=== PATIENT | female | born 1950 | race Caucasian/White ===

== ENCOUNTER → 2018-05-09 18:49 | Outpatient (CLI) | payer MEDICARE, BC, SELFPAY | PROVIDERS: Visit Provider Nurse Practitioner Adult Health | DX: R31.9 Hematuria, unspecified (principal); R82.99 Other abnormal findings in urine | CPT/HCPCS: 87086 ==

== ENCOUNTER → 2018-05-14 12:51 | Outpatient (CLI) | payer MEDICARE, BC, SELFPAY | PROVIDERS: Family Provider Internal Medicine; PCP Internal Medicine; Visit Provider Urology | DX: R10.30 Lower abdominal pain, unspecified (principal); Z87.442 Personal history of urinary calculi | CPT/HCPCS: 74018 ==

== ENCOUNTER 2018-08-19 09:00 | Outpatient (RCR) | payer MEDICARE, BC, SELFPAY ==
--- NOTE | 2018-05-01 17:41 | HP.OTEVAL_ITS ---
Patient's Visit Information CARMENZA ABREU is a 67 year old F, referred to Occupational Therapy by MARY GRACE Syed, with a diagnosis of L wrist pain. Date of Evaluation: 05/01/18 Occupational Therapist: Sally Ahmadi - Subjective Subjective: Arrived and noted L wrist had surgery 50+ years ago per Pt. report due to tendonitis due to de Quervains. She noted that after that at beginning of years had no potassium in body and noted that had a lot of pain and soreness in hand and t/o body. She noted that had increased rx to medications increased all symptoms. She noted that has h/o arthritis and the pain has been increased since September. Wearing brace to session that she was given 50+ years ago per Pt. report. - Pain Left Wrist 4 Pain Intensity Range: 3, 8 - Objective Objective/Observation: Increased weakness noted t/o L UE. No edema, increased sensitivity over radial styloid tendon sheath with palpation. Increased weakness no pain with empty can test. Concerns: Carmenza would benefit from PT to complete general strengthening due to general debility as noted by the Pt. as well as balance as she explained she has had 2x falls to promote increased endurance and ability increased ability to return to PLOF. Please send PT order due to general debility as well as correct OT order for L wrist. - ROM Wrist: flexion R 0-91, L 0-60; ext R 0-44, L 0-44 CMC: opposition R 0-17, L 0-14 MP: flexion R 0-62, L 20-67 IP: flexion R -16-81, L -5-65 MP: WFL PIP: WFL DIP: WFL - Strength Shoulder: R 3+/5, L 3/5 - L side breaks easily with resistance Elbow: R 3+/5, L 3/5 - L side breaks easily with resistance Forearm: R 3+/5, L 3/5 - L side breaks easily with resistance Wrist: R 3+/5, L 3/5 - L side breaks easily with resistance Log Skidder: R 34, L 10 Lateral Pinch: R 10, L 4 Tripod Pinch: R 9, L 4 Tip-to-Tip Pinch: R 6, L 1 - Edema Other: none noted at this time. - DASH-Disabilities of Arm, Shoulder& Hand DASH Sum: 107 - Goals Goal:: Carmenza to increase L box office attendant to that of within 5-10 lbs of R wrist 4/5 trials 80% of the time by d/c. Goal:: Carmenza to have not more than 0-1/10 pain with all fx tasks with no brace on for 4/5 trials 8)5 of the time to promote returning to PLOF including leisure interests by d/c. Goal:: Carmenza to complete proper wrist mechanics and alignment of B wrirst to decrease risk of further or reinjury during all ADL/IADls 4/5 trials 80% of the time by d/c. Goal:: Carmenza to be able to complete all ADL/IADls including fasteners, turning pitt with minimal pain 4/ 5 trials 80% of the time by d/c. Goal:: Carmenza to be mod I to complete HEP to increase strength and endurance needed for ADL/IADLs 4/5 trials 80% of the time by d/c. - Rehabilitation General Assessment: OT evaluation completed on this date. Carmenza exhibits increased signs of arthritic as well as tendon related pain on both radial side and over general wrist. She has severely decreased strength of L dominant UE as well as general debility t/o body from PMHx and IBS and colitis related symptoms , she has increased pain with all fx movements. OT to work on increased radial support through progressive strengthening program, custom splinting, and well as modality use for pain management. Rehabilitation Potential: Good - Anticipated Interventions Anticipated Interventions: A/AAROM/PROM, Strengthening, Scar Care, Triggerpoint Release, Wound Care, Modalities, Orthoses, Joint Protection/Energy Conservation , Ergonomic Education, Dynamic Sitting Balance, Fine Motor Coord/Abel, ADL Training, Caregiver Training, Home Program - Visit Plan Frequency: 2x /Week Duration: 4-6 Weeks General Plan: OT to promote increased ROM in pain free range, UE strength, orthotics as needed to manage pain, pain management, ergonomic training, and general ability to return to PLOF. TEXT: Thank you for the opportunity to evaluate your patient. For Medicare and Medicare HMO plans, please review the plan of care and approve it. It will need to be FAXED BACK to us at [phone] for Medicare purposes. Please let me know if there are questions or concerns regarding this plan of care. Physician Signature: Date:
--- NOTE | 2018-06-05 12:30 | OTREVAL_ITS ---
[place] Medina, ALVINA-C, It has been my pleasure to treat CARMENZA ABREU over the last 10 visits for L wrist pain. Please see the progress note below for an update on the occupational therapy plan of care! Subjective: Arrived and noted slight improvement with touchiness of thumb in brace as well as now out of brace. She feels about 30% back to PLOF. This has been ongoing issue for last 50+ years as well as increased pain over last year. Objective/Function: Re-completed on this date 06/03/18. ROM measurements are as follows: wrist flexion R 0-75, L 0-35; ext R 0-54, L 0-39. Thumb ROM: opposition R 0-24, L 0-16, MP flexion R 0-50, L 0-50; IP flex R -20-77, L -5-57, radial adduction R 0-33, L 0-29 degrees. Completed strength assessment: BUE R 3+/5, L 3/5-easily breaks with resistance, enterprise cloud architect R 38, L 10; lateral pinch 10, L 2; tripod R 10,L 3; pinch R 8, L held due to pain. With tasks stopped at start of pain. Increased pain with all movements through L thumb area. She is able to tolerate touching of fabrics and ultrasound head which is more than previous threshold. She previously needed complete ultrasound in water and not is able to allow to touch skin. Plan Frequency: 2x /Week Duration: 4-6 Weeks Visits in this POC: 8-12 Plan: continue POC. She has recently be dx with C.Diff and has been experiencing general weakness and fatigue t/o body. She often is emotionally liable t/o session due to frustration of pain and circumstances. She has verbalized wanting to continue OT. She has appointment to return to Dr. Simmons on 2017. She has had some decrease in pain but remains very sensitive out of splint. She has only recently been able to tolerate taking splint off while watching TV/sedentary activities and would benefit from further tx of De Quervains. Looked into dexamethasone for iontophoresis treatment but due to additional allergies listed from Dr. Simmons's office that were not indicated from Pt. this will no be completed. De Quervains symptoms have been ongoing for last 50 years and has previously had release. A forearm-based thumb spica splint has been fabricated and she is wearing consistently to manage pain. This splint has including DIP as when starting OT pain and wrist was extremely sensitive to all movements especially touch. She continues to have shooting like pain when out of splint per report. Splint will be cut down when appropriate. OT has started radial stability and thumb stability and strengthening exercises as tolerated as well as B UE strengthening with splint on to promote strengthening. Will continue OT for 2-3x 4 weeks to help continue to decrease pain, gradually decrease splint, promote strength and ROM of thumb and B UE ,and increase participation in ADl/IADls. Goals - Goals Goal:: Carmenza to increase L enterprise cloud architect to that of within 5-10 lbs of R wrist 4/5 trials 80% of the time by d/c. Goal:: Carmenza to have not more than 0-1/10 pain with all fx tasks with no brace on for 4/5 trials 8)5 of the time to promote returning to PLOF including leisure interests by d/c. Goal:: Carmenza to complete proper wrist mechanics and alignment of B wrirst to decrease risk of further or reinjury during all ADL/IADls 4/5 trials 80% of the time by d/c. Goal:: Carmenza to be able to complete all ADL/IADls including fasteners, turning pitt with minimal pain 4/ 5 trials 80% of the time by d/c. Goal:: Carmenza to be mod I to complete HEP to increase strength and endurance needed for ADL/IADLs 4/5 trials 80% of the time by d/c. Anticipated Interventions Anticipated Interventions: A/AAROM/PROM, Strengthening, Scar Care, Triggerpoint Release, Wound Care, Modalities, Orthoses, Joint Protection/Energy Conservation, Ergonomic Education, Dynamic Sitting Balance, Fine Motor Coord/Abel, ADL Training, Caregiver Training, Home Program Please do not hesitate to contact me at [phone] by phone or if you have questions or concerns regarding this new plan of care! Sincerely, Sally Ahmadi
--- NOTE | 2018-06-25 14:54 | HP.OTCOM ---
OT Communication Note 06/25/[address] [place] Medina, [facility] Completed additional measurements as she will be returning to see Dr. Simmons tomorrow. Measurements are as follows: ROM: wrist flexion: R WFL, L 0-36, extension R WFL, L 0-44 Thumb: -radial abduction: R WFL, L 0-29 -opposition R WFL , L 0-27 Strength: corporate security manager R 41, L 25 lbs- pain with movement ; educated to complete only within pain range. lateral R 9, L 6 lbs- pain with movement ; educated to complete only within pain range. tripod R 6, L 2 lbs- pain with movement; educated to complete only within pain range. Sensation: R 2nd 2.83, 3rd 2.83, 4th 2.83, 5th 2.83, thumb 3.22 L 2nd 2.83, 3rd 2.83, 4th 2.83, 5th 2.83, thumb 3.22 Provocative testing. Tinels Sign: positive for R and L hands - difficult to get true understanding of symptoms. rochelle: R negative; L positive. Therapist has concerns for Pt. general well being. She has multiple medical related issues and per Pt. report has been battling kidney stones and c.diff during course of therapy. She has been continually educated if outpatient services if too fatiguing other methods for therapy are available. She has been emotional and emotionally liable t/o all but a very few sessions. She often notes that she feels like she is dying and that she can only cry in front of OT because feels guilty crying in front of her because he is being such a 'big help' at home and is doing most ADLs at this time. She additionally will explain to OT she cannot complete anything but then explain how she has compensated around the task. She will variate between allowing OT to touch painful areas without increased symptoms and then jump at very light touch over painful areas. This makes understanding and determining cause of pain very difficult. Additionally with other underlying medical complications she has a lot she is trying to cope with at this time. Additionally a forearm based thumb spica has been fabricated. This splint was covered with foam to promote comfort and fit. She continues to go back to 50+ y/o black prefabricated splint. She noted custom is not comfortable but fails to allow Ot to adjust and has increased difficulty explaining what is comfortable about splint. OT has recommended a prefabricated forearm based splint to promote comfort and Pt. is looking into it. She has taken about 2 week break due to vacation and has returned to therapy. Increased symptoms since arriving back home. She did lift large pot to save plant from first ocasio and believes to have causing increased symptoms due to lifting task. She will continue POC as established at reassessment 06/06/18. OT to try some desensitization techniques to help decrease pain. If symptoms do not reside in 3-4 visits she will be d/c'd and sent back for further evaluation. Sincerely, Sally Ahmadi, OTR/L Contact Information
--- NOTE | 2018-07-04 11:31 | HP.OTREVAL ---
MARY GRACE Syed, It has been my pleasure to treat CARMENZA ABREU over the last 17 visits for L wrist pain. Please see the progress note below for an update on the occupational therapy plan of care! Subjective: Arrived and noted that Dr. Simmons is referring to sport medicine doctor part of [facility]. She is seeing ALVINA Ortiz. Notes on waitlist. Objective/Function: Completed re-assessment today. She continues to exhibit increased pain with gripping and ROM tasks. Increased sharp pain with emotional response with flexion movements of wrist and thumb. Completed provocative testing with some increased CTS related symptoms with positive tinnels. Did not test Phalen?s as increased pressure would increase de quervains like symptoms. Tinnels sign more present in L hand than R hand. Notes numbness in all finger of L hand with tinnel testing. Past cervical injuries noted. Addition crepitus over joints and tenderness at base of MCP with palpation of A1 edin of R and L RF showing signs of potential of trigger fingers. ROM is as follows: wrist flexion R 0-87, L 0-30 degrees- very stiff on L wrist and increased pain. wrist extension R 0-42, L 0-42. Able to make full composite fist with R fist and L fist. L DIP WFL, L PIP WFL, and L MCP is as follows for digits 2-5th: 2nd 4-84, 3rd 18-86, 4th 10-88, 5th 10-91. thumb: R MP flexion WFL. L MP flexion from flexion position of 34-59 degrees. Thumb IP L WFL; R -19-0-59. Strength measurements is as follows: seamstress fitter R 53, L 8 lbs- increased pain drawing tears to Pt. eyes. lateral pinch R 12, L 4 lbs. tripod R 12, L held. pincer R 5 lbs, L pincer. Sensation: R 2nd 2.83, 3rd 2.83, 4th 2.83, 5th 2.83, thumb 3.22. L 2nd 2.83, 3rd 2.83, 4th 2.83, 5th 2.83, thumb 3.22. Plan Frequency: 2x /Week Duration: 4-6 Weeks Visits in this POC: 8-12 Plan: Will be holding POC until able to see further specialist. Concerns noted with increased stiffness of L wrist flexion but increased flexion increases sharp shooting pain through thumb evoking emotional response. She exhibits positive tinnels on B hands but does have h/o cervical injuries. Pain referral patterns appear to follow radial nerve distribution innervation patterns of L wrist. She does have cortisone and dexamethasone allergies. Dexamethasone is medication used for iontophoresis treatments and has been unable to be additional source of pain management due to allergy. Have been using ultrasound and fluidotherapy to help manage symptoms. OT has attempted making custom splints but increased discomfort noted by patient in both splints and prefers prefabricated splint used when she had tendon sheath release for De Quervains 50+ years ago. Thumb related pain has been issue for 50+ years. Trailed getting additional prefabricated forearm-based thumb spica splint but also did not prefer splint and feels most relief in prefabricated splint previously used. Has been in splint since September. Started OT In April for symptoms starting in September 2017. Appointment schedule for Carmenza to return to OT on Jul 25 for follow up post doctor appointment scheduled on . She is to call if able to get into see specialist prior to Jul 22 and we can adjust schedule. Progress has been limited and pain remains constant. Concerns have been noted to referring doctor of pain and mental health wellbeing due to sustain period of time in which Pt. has been in consistent pain. Further follow up needed with doctor to promote wellbeing and determine cause of pain and symptoms. Will be seen for 1x follow and will determine POC post follow up with doctor. Goals - Goals Goal:: Carmenza to increase L seamstress fitter to that of within 5-10 lbs of R wrist 4/5 trials 80% of the time by d/c. Goal:: Carmenza to have not more than 0-1/10 pain with all fx tasks with no brace on for 4/5 trials 8)5 of the time to promote returning to PLOF including leisure interests by d/c. Goal:: Carmenza to complete proper wrist mechanics and alignment of B wrirst to decrease risk of further or reinjury during all ADL/IADls 4/5 trials 80% of the time by d/c. Goal:: Carmenza to be able to complete all ADL/IADls including fasteners, turning pitt with minimal pain 4/ 5 trials 80% of the time by d/c. Goal:: Carmenza to be mod I to complete HEP to increase strength and endurance needed for ADL/IADLs 4/5 trials 80% of the time by d/c. Anticipated Interventions Anticipated Interventions: A/AAROM/PROM, Strengthening, Scar Care, Triggerpoint Release, Wound Care, Modalities, Orthoses, Joint Protection/Energy Conservation, Ergonomic Education, Dynamic Sitting Balance, Fine Motor Coord/Abel, ADL Training, Caregiver Training, Home Program Please do not hesitate to contact me at [phone] by phone or if you have questions or concerns regarding this new plan of care! Sincerely, Sally Ahmadi
--- NOTE | 2018-07-12 15:23 | OTREVAL_ITS ---
Ch[place] Medina, AUTOMOTIVE ACCESSORY INSTALLER-C, It has been my pleasure to treat CARMENZA ABREU over the last 18 visits for L wrist pain. Please see the progress note below for an update on the occupational therapy plan of care! Subjective: Arrived and noted new script from Dr. Ha. Dr. Ha has provided Lidocaine 5% patch in which Pt. noted she is to wear 12 hours. Arrived with patch on and noted that has had patch on since 7 am. Objective/Function: Tenderness with thenar eminence and CMC joint with light palpation. Previous measurements: L DIP WFL, PIP WFL, and MCP is as follows for digits 2-5th: 2nd 4-84, 3rd 18-86, 4th 10-88, 5th 10-91. thumb: R MP flexion WFL. L MP flexion from flexion position of 34-59 degrees. Thumb IP L WFL; R -1 9-0-59. Strength measurements is as follows: copper plate printer R 53, L 8 lbs- increased pain drawing tears to Pt. eyes. lateral pinch R 12, L 4 lbs. tripod R 12, L held. pincer R 5 lbs, L pincer. Plan Frequency: 1x/Week Duration: 3 Weeks Visits in this POC: 21 Plan: Adjusting POC. 1x3 weeks. She has already been seen for 18 visits with very limited improvements which is why Ot reccommended she return to doctor. She has since seen Dr. Ha and recieved lidocaine patch to manage pain. This appears to be helpping. She has provided new script and would like to continue OT. PRE needed to promote strength of L wrist as she has been splinted for last 6 months prior to coming to therapy. Symptoms have been ongoing for last 50 years and icnreased since 2017. She remians in splint for ADl/IADls. She has HEP set up and is to continue to complete to build strength. Additional exercises to be added within next appointments to promote building strength in wrist and forearm. Goals - Goals Goal:: Carmenza to increase L copper plate printer to that of within 5-10 lbs of R wrist 4/5 trials 80% of the time by d/c. Goal:: Carmenza to have not more than 0-1/10 pain with all fx tasks with no brace on for 4/5 trials 8)5 of the time to promote returning to PLOF including leisure interests by d/c. Goal:: Carmenza to complete proper wrist mechanics and alignment of B wrirst to decrease risk of further or reinjury during all ADL/IADls 4/5 trials 80% of the time by d/c. Goal:: Carmenza to be able to complete all ADL/IADls including fasteners, turning pitt with minimal pain 4/ 5 trials 80% of the time by d/c. Goal:: Carmenza to be mod I to complete HEP to increase strength and endurance needed for ADL/IADLs 4/5 trials 80% of the time by d/c. Anticipated Interventions Anticipated Interventions: A/AAROM/PROM, Strengthening, Scar Care, Triggerpoint Release, Wound Care, Modalities, Orthoses, Joint Protection/Energy Conservation, Ergonomic Education, Dynamic Sitting Balance, Fine Motor Coord/Abel, ADL Training, Caregiver Training, Home Program Please do not hesitate to contact me at [phone] by phone or if you have questions or concerns regarding this new plan of care! Sincerely, Sally Ahmadi
--- NOTE | 2018-08-02 12:10 | OTREVAL_ITS ---
[place] Medina, ALVINA-C, It has been my pleasure to treat CARMENZA ABREU over the last 21 visits for L wrist pain. Please see the progress note below for an update on the occupational therapy plan of care! Subjective: Arrived and noted that has used lidocaine patch one time in past week. Noted feel 65% back to normal. She notes that the achiness has dissipated but still has sharp shooting pain with movements. Completed washing dishes which she noted went well. Noted still needing some help from to doff overhead shirt due to brace. Objective/Function: Completed reassessment on this date of 08/02/18. Measurements are as follows: ROM: wrist flexion: R 0-76, L 0-34. wrist extension: 0-45, L 0-34. supination R 0-78, L 0-80. Thumb: IP: R -15-0-75, L -9-0-68. MP flexion: R 0-53, L 7-68. radial abduction: WFL, L 0-30. Strength: press tender incendiary grenade: R 56, L 9 lbs - increased pain and need to support with other hand. Lateral hand: R 11, L 7 lbs -pain increased to 6/10. Tripod R 11, L 4 lbs -pain increased to 6/10. Pincer R 8 lbs, L 3 lbs - pain increased to 5-6/10. Completed this testing after break prior to continuing. Completed sensory testing and measurements are as follows: R 2nd 2.83, 3rd 2.83 , 4th 2.83, 5th 2.83 , thumb 2.83. L 2nd 2.83, 3rd 2.83 , 4th 2.83, 5th 2.83 , thumb 2.83. She has progressed since initial evaluation with able to complete more pinch related testing without tear provoking pain. Pain still present with gripping related tasks. Plan Frequency: 1x/Week Duration: 3 Weeks Visits in this POC: 22 Plan: Continue POC for 1x more session with follow up in two weeks. She has progressed with increased ability to tolerated movements and she is able to complete functional pinch patterns with increased pain but no tear provoking pain in which movements needed to be avoided. Pain has decreased but still present. She is going without brace t/o home but is still to wear in public as well as at night. She is progressing but is slow to progress. Per request and due to improvement, she will follow up 1x and then will likely be d/c'd at that time if all continues to progress well. Goals - Goals Goal:: Carmenza to increase L press tender incendiary grenade to that of within 5-10 lbs of R wrist 4/5 trials 80% of the time by d/c. Goal:: Carmenza to have not more than 0-1/10 pain with all fx tasks with no brace on for 4/5 trials 80% of the time to promote returning to PLOF including leisure interests by d/c. Goal:: Carmenza to complete proper wrist mechanics and alignment of B wrirst to decrease risk of further or reinjury during all ADL/IADls 4/5 trials 80% of the time by d/c. - MEANT Goal:: Carmenza to be able to complete all ADL/IADls including fasteners, turning pitt with minimal pain 4/ 5 trials 80% of the time by d/c. Goal:: Carmenza to be mod I to complete HEP to increase strength and endurance needed for ADL/IADLs 4/5 trials 80% of the time by d/c. Anticipated Interventions Anticipated Interventions: A/AAROM/PROM, Strengthening, Scar Care, Triggerpoint Release, Wound Care, Modalities, Orthoses, Joint Protection/Energy Conservation, Ergonomic Education, Dynamic Sitting Balance, Fine Motor Coord/Abel, ADL Training, Caregiver Training, Home Program Please do not hesitate to contact me at [phone] by phone or if you have questions or concerns regarding this new plan of care! Sincerely, Sally Ahmadi
--- NOTE | 2018-08-19 18:52 | HP.OTDCSUM_ITS ---
HP - OT D/C Summary It has been my pleasure to treat CARMENZA ABREU under orders from MARY GRACE Syed, for the diagnosis of L wrist pain for a total of 22 visit(s). Please see the following information for a summary of their discharge status. - Overall Improvement % Improvement: 50 - Objective Objective/Function: Arrived and completed reassessment 08/19/18. Completed measurements as follows: ROM: Wrist: - flexion: R 0-85, L 0-35. - extension: R 0-49, L 0-49. - supination: R 0-78, L 0-80. Thumb: - radial adduction: R0- 39, L 0-31. - MP: R 0-65, L 22-60. - IP: R 0-68, L -28-0-73. - opposition: R WFL; L 0-32. Strength: - metal die finisher: R 79, L 8 lbs. - lateral: R 10, L 4 lbs. - tripod: R 12, L 4 lbs. - Tip pinch R 9, L 3 lbs. Perceived touch sensation is WNL upon testing two weeks ago in which it was 2.83 for all fingers. Sharp shooting pain with resistive movements. Tenderness with palpation over CMC and thumb area. Progress has occurred but is minimal at this time. - Goals Patient Goals: Regain Mobility, Regain Strength, Decrease Pain, Return to Work, Decrease Swelling/Stiffness, Improve Fine Motor Skills, Use Hand/Wrist/Arm Normally Again, Sleep Better, Increase ROM, Be More Independent in ADLS, Resume Former Household Responsibilities (Cooking,Cleaning,Yard, etc.), Resume Hobbies Goal:: Carmenza to increase L metal die finisher to that of within 5-10 lbs of R wrist 4/5 trials 80% of the time by d/c. Goal:: Carmenza to have not more than 0-1/10 pain with all fx tasks with no brace on for 4/5 trials 80% of the time to promote returning to PLOF including leisure interests by d/c. Goal:: Carmenza to complete proper wrist mechanics and alignment of B wrirst to decrease risk of further or reinjury during all ADL/IADls 4/5 trials 80% of the time by d/c. - MEANT Goal:: Carmenza to be able to complete all ADL/IADls including fasteners, turning pitt with minimal pain 4/ 5 trials 80% of the time by d/c. Goal:: Carmenza to be mod I to complete HEP to increase strength and endurance needed for ADL/IADLs 4/5 trials 80% of the time by d/c. - Plan Plan: She will be d/c'd today. She was very upset and emotional with discharge as she feels she needs to be 100% prior to discharge. She noted she has been splinting hand for last 5 months as start 2 months prior to starting OT about 3 months ago. OT explained that due to seeing for 22 visits and that although progress has occurred the progress has been minimal and it is no longer appropriate to continue therapy. Carmenza was very upset by this as she feels she needs to be back to 100% by therapy d/c and this issue has been ongoing for the last 12 months with increased symptoms. However, the issue started and has been ongoing for 50+ years and she has already had release completed 50+ years ago. OT further noted that if still having trouble within a couple months it would potentially be beneficial to try therapy again. Additionally, she continues to state that due to wrist pain she is ?not going out with friends? and ?can?t do anything for herself?. She has further confided with OT that family and friends have noted that she is having trouble remembering things and this is very upsetting to her. OT offered to put her in touch with [facility] social sciences instructor to help find different community supports but Pt. noted she does not have money to see counselor and took offense to suggestion. OT tried to further explain that [employer] is to help Carmenza as a patient advocate for herself but still not willing to be provided information. At the initial evaluation Carmenza noted she wanted to see a hand specialist, or CHT. OT educated that CHT is Missy and she could schedule with missy but decided to stick with current OT. This option was available during the course of therapy but denied changing therapists. Over the course of therapy, OT has made 2x forearm-based thumb spica?s, Carmenza did not like and deem uncomfortable. As a different solution, OT had Carmenza purchase a prefabricated thumb spica to allow more finger movements, but Carmenza did not like and returned the prefabricated. She continued to use the prefabricated splint provided post de quervain?s release 50+ years ago. She noted that after release she was supposed to wear brace during gardening etc. but did not complete for 50+years as did not need too as she did not have pain. She recently has been placed in thumb spica splint by Dr. Ha and was wearing upon arrival today. Additionally, OT was address sensitivity and pain through use of therapeutic ultrasound and fluidotherapy. Iontophoresis was not an option due to drug related allergies and moist heat was to be completed by Pt. at home. Additional, were completed very minimal resistive exercises for intrinsic strengthening and basic ROM and isometrics. She noted she has not been completing desensitization techniques lately due to frustration post last doctor appointment as well as in general with hand she has not been completing HEP. Carmenza further explained she is not using lidocaine patch anymore as refill prescription was different than original medication and it is more difficult to cue and use at this time. Sharp shooting pain remains, and she is very frustrated with progress of L wrist and hand. Measurements for strength compared to two weeks ago is decreased. She will be discharged due to plateau of progress. She was educated two weeks ago that she would likely be discharged at this appointment as was okay with that plan but today was more emotional when being explained that measurements had plateaued. She was educated to continue HEP as set up by OT over the course of treatment. This HEP is only ROM, isometrics of wrist, and very light putty exercises that are to be completed as tolerated and have been show how to be completed in the splint if pain is above 5/10 out of splint. Additionally, if pain resides in upcoming months and she would be able to complete additional therapy tasks she was encouraged to try therapy again. OT encouraged to return to doctor to further determine what else can be done to help manage pain as progress in OT has plateaued. - D/C Information If there are questions or concerns regarding this patient's occupational therapy, please fell free to call me at [phone]. Thank you for the r eferral of this patient. Sincerely, Sally Ahmadi, OTR/L
--- NOTE | 2018-08-20 15:56 | HP.OTDCSUM_ITS ---
HP - OT D/C Summary It has been my pleasure to treat CARMENZA ABREU under orders from MARY GRACE Syed, for the diagnosis of L wrist pain for a total of 22 visit(s). Please see the following information for a summary of their discharge status. - Overall Improvement % Improvement: 50 - Objective Objective/Function: Arrived and completed reassessment 08/19/18. Completed measurements as follows: ROM: Wrist: - flexion: R 0-85, L 0-35. - extension: R 0-49, L 0-49. - supination: R 0-78, L 0-80. Thumb: - radial adduction: R0- 39, L 0-31. - MP: R 0-65, L 22-60. - IP: R 0-68, L -28-0-73. - opposition: R WFL; L 0-32. Strength: - cnc machinist 2nd shift: R 79, L 8 lbs. - lateral: R 10, L 4 lbs. - tripod: R 12, L 4 lbs. - Tip pinch R 9, L 3 lbs. Perceived touch sensation is WNL upon testing two weeks ago in which it was 2.83 for all fingers. Sharp shooting pain with resistive movements. Strength measuremtns decreased from previous session. Tenderness with palpation over CMC and thumb area that has been ongoing since start of therapy. Progress has occurred but is minimal and has plateaued at this time. - Goals Patient Goals: Regain Mobility, Regain Strength, Decrease Pain, Return to Work, Decrease Swelling/Stiffness, Improve Fine Motor Skills, Use Hand/Wrist/Arm Normally Again, Sleep Better, Increase ROM, Be More Independent in ADLS, Resume Former Household Responsibilities (Cooking,Cleaning,Yard, etc.), Resume Hobbies Goal:: Carmenza to increase L cnc machinist 2nd shift to that of within 5-10 lbs of R wrist 4/5 trials 80% of the time by d/c. Goal:: Carmenza to have not more than 0-1/10 pain with all fx tasks with no brace on for 4/5 trials 80% of the time to promote returning to PLOF including leisure interests by d/c. Goal:: Carmenza to complete proper wrist mechanics and alignment of B wrirst to decrease risk of further or reinjury during all ADL/IADls 4/5 trials 80% of the time by d/c. - MEANT Goal:: Carmenza to be able to complete all ADL/IADls including fasteners, turning pitt with minimal pain 4/ 5 trials 80% of the time by d/c. Goal:: Carmenza to be mod I to complete HEP to increase strength and endurance needed for ADL/IADLs 4/5 trials 80% of the time by d/c. - Plan Plan: She will be d/c'd today. She was very upset and emotional with discharge as she feels she needs to be 100% prior to discharge. She was educated and agreeable at previous session that d/c was to occur within next appointment but upset with decision today. She noted she has been splinting hand for last 5 months as started splinting 2 months prior to starting OT about 3 months ago. OT explained that due to seeing Pt. for 22 visits and that although progress has occurred, the progress has been minimal, and it is no longer appropriate to continue therapy. Carmenza was very upset by this as she feels she needs to be back to 100% by therapy d/c and this issue has been ongoing for the last 12 months with increased symptoms. However, the issue started and has been ongoing for 50+ years and she has already had release completed 50+ years ago. OT further noted that if still having trouble within a couple months it would potentially be beneficial to try therapy again. Additionally, she continues to state that due to wrist pain she is ?not going out with friends? and ?can?t do anything for herself?. She has further confided with OT that family and friends have noticed that she is having trouble remembering things and this is very upsetting to her. Additionally, doctor?s appointment and pain in wrist is overwhelming per Pt. report and she ?feels like she cannot completed task for herself? which she has been educated in OT on a/e but refuses to use at this time to complete adaptation or compensations. Due to these concerns listed by Carmenza, OT offered to put her in touch with [facility] social work administrator to help find different community supports but Pt. noted she does not have money to see counselor and took offense to suggestion. OT tried to further explain that [employer] would be able to help Carmenza as a patient advocate for herself but still not willing to be provided information. At the initial evaluation Carmenza noted she wanted to see a hand specialist, or CHT. OT educated that CHT is Missy and she could schedule with Missy but decided to stick with current OT. This option was available during the course of therapy but Pt. denied changing therapists. Over the course of therapy, OT has made 2x forearm-based thumb spica?s, Carmenza did not like and deem uncomfortable. As a different solution, OT had Carmenza purchase a prefabricated thumb spica to allow more finger movements, but Carmenza did not like and returned the prefabricated. She continued to use the prefabricated spl int provided post de quervain?s release 50+ years ago. She noted that after release she was supposed to wear brace during gardening etc. but did not complete for 50+years as did not need too as she did not have pain. She recently has been placed in thumb spica splint by Dr. Ha and was wearing upon arrival today. She noted she has not been completing desensitization techniques lately due to frustration post last doctor appointment as well as in general with hand she has not been completing HEP. Carmenza further explained she is not using lidocaine patch anymore as refill prescription was different than original medication and it is more difficult to cue and use at this time. Sharp shooting pain remains, and she is very frustrated with progress of L wrist and hand. Measurements for strength compared to two weeks ago is decreased. She will be discharged due to plateau of progress. She was educated two weeks ago that she would likely be discharged at this appointment as was okay with that plan but today was more emotional when being explained that measurements had plateaued. She was educated to continue HEP as set up by OT over the course of treatment. This HEP is only ROM, isometrics of wrist, minimal intrinsic exercises, and very light putty exercises that are to be completed as tolerated and have been show how to be completed in the splint if pain is above 5/10 when out of splint. Additionally, if pain resides in upcoming months and she would be able to complete additional therapy tasks she was encouraged to try therapy again. OT encouraged to return to doctor to further determine what else can be done to help manage pain as progress in OT has plateaued. - D/C Information If there are questions or concerns regarding this patient's occupational therapy, please fell free to call me at [phone]. Thank you for the referral of this patient. Sincerely, Sally Ahmadi
== END 2018-08-19 19:00 | disposition home or self-care (01) ==
LOC: OT 09:00
PROVIDERS: Family Provider Internal Medicine; PCP Internal Medicine; Visit Provider Nurse Practitioner Primary Care
DX: M25.532 Pain in left wrist (principal)
CPT/HCPCS: 97035; 97110; 97166; 97168; 97530; 97760; 97763; G8987; G8988

== ENCOUNTER → 2019-10-16 15:55 | Outpatient (CLI) | payer MEDICARE, BC, SELFPAY | PROVIDERS: PCP Internal Medicine; Referring Provider Urology; Visit Provider Urology | DX: R30.9 Painful micturition, unspecified (principal) ==

== ENCOUNTER → 2019-10-27 16:33 | Outpatient (CLI) | payer MEDICARE, BC, SELFPAY | PROVIDERS: PCP Internal Medicine; Referring Provider Urology; Visit Provider Urology | DX: N39.0 Urinary tract infection, site not specified (principal) | CPT/HCPCS: 87077; 87086; 87088; 87186 ==